=== PATIENT | male | born 1965 ===

== ENCOUNTER 2019-09-06 09:44 | Emergency (ER) | payer BC ==
--- OUTSIDE RECORDS SUMMARY | 2019-09-06 11:20 | XMS REPORT | Continuity of Care Document ---
:1965 External Reference #:[id number] Author Name Samir Reynolds M.D. Address [address] [facility] [address] [place] [address] Care Team Providers Name Role Phone Indio Stern DO - Family Care Team Information Rn Digestive Medicine Charles Koroma MD - Family Medicine Care Team Information Rn Digestive Problems Active Problems Provider Date Enthesopathy Onset: 07/27/2003 Arthralgia of the ankle and/or foot Onset: 07/27/2003 Shoulder joint pain Onset: 07/27/2003 Essential hypertension Stacy Brown M.D. Onset: 01/08/2017 Abdominal pain Sid Brooks MD,FACS Onset: 03/27/2017 Symptom of skin and integumentary tissue Sid Brooks MD,FACS Onset: 03/27 Bilateral inguinal hernia Sid Brooks MD,FACS Onset: 06/25/2017 Benign essential hypertension Stacy Brown M.D. Onset: 01/08/2017 Localized, primary osteoarthritis Christy Kaufman PA Onset: 12/01/2018 Blood chemistry abnormal Charles Koroma MD Onset: 04/21/2019 Benign prostatic hypertrophy without Samir Reynolds M.D. 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 Tablets office before proedure Dexamethasone take at 11 at 1tabs D44.12 Samir Reynolds, 08/31/2019 1mg Tablets night night M.D. before blood test to be done at 8 am next day Valsartan 1 tab by mouth 90tabs Charles Koroma MD 04/28/2019 320mg Tablets every day as directed Amlodipine Besylate 1 by mouth every 90tabs Charles Koroma MD 04/28/2019 5mg day Tablets Blood Pressure Cuff check bp every 1units I10 Stacy Brown, 01/08/2017 Misc daily until M.D. stable Aspir-81 1 by mouth every Unknown 81mg Tablets DR day Aleve 1 by mouth twice Unknown 220mg Capsules a day after meals as needed Bifidoph 2 at night Unknown Proactazyme 5 a day Unknown Immunizations CPT Code Status Date Vaccine Lot # [id number] Given 04/21/2019 Influenza Virus Vaccine, Quadrivalent, 36 Mos+, [id number] Given 08/22/2017 Influenza Virus Vaccine Quadrivalent Iiv4 [place] [id number] [id number] Given 01/08/2017 Tdap injection [id number] Vital Signs Date Vital Result Comment 08/31/2019 1:51pm BP Systolic 155 mmHg BP Diastolic 82 mmHg Body Temperature 98.2 F Heart Rate 102 /min Respiratory Rate 16 /min Height 71 inches 5'11" Weight 237.50 lb Pain Level 0 BMI (Body Mass Index) 33.1 kg/m2 BSA (Body Surface Area) 2.27 m2 [place] body weight in kilograms 78 kg O2 % BldC Oximetry 98 % 08/11/2019 3:37pm BP Systolic Sitting Right Arm 150 mmHg BP Diastolic Sitting Right Arm 101 mmHg BP Systolic Sitting Left Arm 147 mmHg BP Diastolic Sitting Left Arm 102 mmHg Body Temperature 98.6 F Heart Rate 85 /min Respiratory Rate 16 /min Height 71 inches 5'11" Weight 235.00 lb Pain Level 0 BMI (Body Mass Index) 32.8 kg/m2 BSA (Body Surface Area) 2.26 m2 [place] body weight in kilograms 78 kg O2 % BldC Oximetry 98 % Results Test Acquired Date Facility Test Result H/L Range Note Urine Dipstick 08/11/2019 [facility] Ua Color Yellow Yellow Ua Clarity Clear Clear Ua Leuko Negative Negative Ua Nitrite Negative Negative Ua Urobilinogen 0.2 0.2 - 1.0 E.U./dL Ua Protein Negative Negative Ua PH 6.5 6.5-7.5 Ua Blood 25 High Negative Ua Specific [place] 1.015 1.010-1.030 Ua Ketones Negative Negative Ua Bilirubin Negative Negative Ua Glucose Negative Negative Ua RFX Micro & Culture 08/11/2019 [facility] Urine Color Yellow Yellow 1 II [address] [place] [address] [phone] Urine Clarity Clear Clear Urine Glucose - Dipstick NEGATIVE mg/dL Negative Urine Bilirubin - Dipstick NEGATIVE Negative Urine Ketone NEGATIVE mg/dL Negative Urine Specific [place] 1.005 Low 1.010-1.030 Urine Blood TRACE Negative Urine PH 5.5 Low 6.5-7.5 Urine Protein - Dipstick NEGATIVE mg/dL Negative Urine Urobilinogen - Dipstick < 2.0 mg/dL < 2.0 Urine Nitrite - Dipstick NEGATIVE Negative Urine Leuk Esterase NEGATIVE Negative Urine WBC 0-2 wbc/hpf 0-5 Source: URINE, CLEAN CAT <SEE NOTE> 2 Basic Metabolic Panel 08/11/2019 [facility] Glucose 92 mg/dL Normal 74-106 [address] [place] [address] [phone] BUN 13 mg/dL Normal 7-18 Creatinine 1.3 mg/dL Normal 0.6-1.3 Glom Filtration Rate, Estimate >60 mL/min >60 If >60 mL/min >60 3 BUN/Creat 10.0 ratio Sodium 134 mmol/L Low 136-145 Potassium 4.0 mmol/L Normal 3.5-5.1 Chloride 101 mmol/L Normal 98-107 Carbon Dioxide 27 mmol/L Normal 21-32 Anion Gap 6 mEq/L Low 8-16 Calcium 8.8 mg/dL Normal 8.5-10.1 Ua RFX Micro & Culture 08/10/2019 [facility] [address] Urine Color Yellow Yellow 4 II [address] [place] [address] [phone] Urine Clarity Clear Clear Urine Glucose - Dipstick NEGATIVE mg/dL Negative Urine Bilirubin - Dipstick NEGATIVE Negative Urine Ketone NEGATIVE mg/dL Negative Urine Specific [place] 1.015 Normal 1.010-1.030 Urine Blood NEGATIVE Negative Urine PH 5.5 Low 6.5-7.5 Urine Protein - Dipstick 30 mg/dL Abnormal Negative Urine Urobilinogen - Dipstick < 2.0 mg/dL < 2.0 Urine Nitrite - Dipstick NEGATIVE Negative Urine Leuk Esterase NEGATIVE Negative Urine RBC 3-5 rbc/hpf 0-2 Urine WBC 0-2 wbc/hpf 0-5 Urine Hyaline Cast 0-2 #/lpf None Seen Urine Mucus SMALL None Seen Source: URINE, CLEAN CAT <SEE NOTE> 5 PSA (Free 08/10/2019 [facility] [address] Prostate-specific 1.4 ng/mL 0.0- 4.0 6 And Total) [address] [facility] antigen,[place] [address] [phone] PSA,Free 0.34 ng/mL N/A 7 %Free PSA 24.3 % . 8 Urine Culture 08/10/2019 [facility] Urine Culture NO GROWTH: [address] <[place] [address] NOTE> [phone] Urine Dipstick 08/10/2019 [facility] Ua Leuko - Negative Ua Nitrite - Negative Ua Urobilinogen .2 0.2 - 1.0 E.U./dL Ua Protein 1+ High Negative Ua PH 6 Low 6.5-7.5 Ua Blood trace Negative Ua Specific [place] 1.015 1.010-1.030 Ua Ketones - Negative Ua Bilirubin - Negative Ua Glucose - Negative Laboratory test 06/29/2019 [facility] [address] Uric Acid 7.2 mg/dL Normal 3.5-7.2 10 finding [address] [place] [address] [phone] Basic Metabolic 06/29/[address] Glucose 107 mg/dL High 74- 106 Panel [address] [place] [address] [phone] BUN 12 mg/dL Normal 7-18 Creatinine 1.2 mg/dL Normal 0.6-1.3 Glom Filtration Rate, Estimate >60 mL/min >60 If >60 mL/min >60 11 BUN/Creat 10.0 ratio Sodium 136 mmol/L Normal 136-145 Potassium 3.9 mmol/L Normal 3.5-5.1 Chloride 105 mmol/L Normal 98-107 Carbon Dioxide 28 mmol/L Normal 21-32 Anion Gap 3 mEq/L Low 8-16 Calcium 9.0 mg/dL Normal 8.5-10.1 Ua RFX Micro & 06/29/[address] [place] [address] [place] [address] [phone] Urine Clarity Clear Clear Urine Glucose - Dipstick NEGATIVE mg/dL Negative Urine Bilirubin - Dipstick NEGATIVE Negative Urine Ketone NEGATIVE mg/dL Negative Urine Specific [place] 1.013 Normal 1.010-1.030 Urine Blood TRACE Negative Urine PH 5.5 Low 6.5-7.5 Urine Protein - Dipstick TRACE mg/dL Negative Urine Urobilinogen - Dipstick < 2.0 mg/dL < 2.0 Urine Nitrite - Dipstick NEGATIVE Negative Urine Leuk Esterase NEGATIVE Negative Urine RBC 3-5 rbc/hpf 0-2 Urine Mucus SMALL None Seen Source: URINE, CLEAN CAT <SEE NOTE> 12 Comprehensive 04/21/[address] Glucose 99 mg/dL Normal 74-106 Metabolic Panel [address] [place] [address] [phone] BUN 15 mg/dL Normal 7-18 Creatinine 1.3 mg/dL Normal 0.6-1.3 Glom Filtration Rate, Estimate >60 mL/min >60 If >60 mL/min >60 13 BUN/Creat 11.5 ratio Sodium 133 mmol/L Low 136-145 Potassium 3.8 mmol/L Normal 3.5-5.1 Chloride 99 mmol/L Normal 98-107 Carbon Dioxide 28 mmol/L Normal 21-32 Anion Gap 6 mEq/L Low 8-16 Calcium 9.2 mg/dL Normal 8.5-10.1 Total Protein 7.6 g/dL Normal 6.4-8.2 Albumin 3.8 g/dL Normal 3.4-5.0 Globulin 3.8 g/dL Normal 1.9-4.3 Alb/Glob 1.0 ratio Bilirubin,Total 0.5 mg/dL Normal 0.2-1.0 Sgot/Ast 24 U/L Normal 15-37 SGPT/Alt 34 U/L Normal 12-78 Alkaline Phosphatase 68 U/L Normal 45-117 LDL Cholesterol Profile 04/21/[address] [facility] [address] Cholesterol 184 mg/dL <829 07 [address] [place] [address] [phone] Triglycerides 122 mg/dL <150 15 HDL Cholesterol 53 mg/dL >40 16 LDL-Cholesterol 107 mg/dL < 100 17 1 R31.21 2 URINE, CLEAN CATCH 3 Note: Persistent reduction for 3 months or more in an eGFR <60 mL/min/1.73 m2 defines CKD. Patients with eGFR values >/=60 mL/min/1.73 m2 may also have CKD if evidence of persistent proteinuria is present. The original MDRD equation for estimated GFR is not valid for patients less than 18 years of age. Additional information may be found at www.kdoqi.org. 4 R31.9 5 URINE, CLEAN CATCH 6 Iain ECLIA methodology. According to the [place] [employer], Serum PSA should decrease and remain at undetectable levels after radical prostatectomy. The AUA defines biochemical recurrence as an initial PSA value 0.2 ng/mL or greater followed by a subsequent confirmatory PSA value 0.2 ng/mL or greater. Values obtained with different assay methods or kits cannot be used interchangeably. Results cannot be interpreted as absolute evidence of the presence or absence of malignant disease. 7 Iain ECLIA methodology. 8 The table below lists the probability of prostate cancer for men with non-suspicious ANDRY results and total PSA between 4 and 10 ng/mL, by patient age (Catalona et al, TERENCE 1998, 279:1542). % Free PSA 50-64 yr 65-75 yr 0.00-10.00% 56% 55% 10.01-15.00% 24% 35% 15.01-20.00% 17% 23% 20.01-25.00% 10% 20% >25.00% 5% 9% Please note: Te et al did not make specific recommendations regarding the use of percent free PSA for any other population of men. Performed at: RN - [facility] [address] [id number] [employer]: Kayleen Barnes MD, Phone: [phone] NO GROWTH: FINAL REPORT 10 Z33.000 11 Note: Persistent reduction for 3 months or more in an eGFR <60 mL/min/1.73 m2 defines CKD. Patients with eGFR values >/=60 mL/min/1.73 m2 may also have CKD if evidence of persistent proteinuria is present. The original MDRD equation for estimated GFR is not valid for patients less than 18 years of age. Additional information may be found at www.kdoqi.org. 12 URINE, CLEAN CATCH 13 Note: Persistent reduction for 3 months or more in an eGFR <60 mL/min/1.73 m2 defines CKD. Patients with eGFR values >/=60 mL/min/1.73 m2 may also have CKD if evidence of persistent proteinuria is present. The original MDRD equation for estimated GFR is not valid for patients less than 18 years of age. Additional information may be found at www.kdoqi.org. 14 Reference Guidelines*: Desirable: ........... < 200 mg/dL Borderline High: ..... 200-239 mg/dL High: ................ >= 240 mg/dL * The National Cholesterol Education Program (NCEP) 15 Reference Guidelines*: Normal: ............. < 150 mg/dL Borderline High: .... 150-199 mg/dL High: ............... 200-499 mg/dL Very High: .......... > 500 mg/dL * Source: National Cholesterol Education Program (NCEP) 16 Reference Guidelines*: Low HDL: ..... < 40 mg/dL Normal: ..... 40-60 mg/dL Desirable: ... > 60 mg/dL *The National Cholesterol Education Program(NCEP) 17 Reference Guidelines*: Optimal:........... <100 mg/dL Near Optimal....... 100-129 mg/dL Borderline High.... 130-159 mg/dL High............... 160-189 mg/dL Very High.......... >=190 mg/dL * Source: National Cholesterol Education Program (NCEP) Procedures Date Code Description Status 08/31/2019 23423 Cystoscopy Completed 08/31/2019 91972 Measurement Post Voiding Residual Urine By Completed Ultrasound,Non-Imaging 08/31/2019 50765 complex uroflowmetry electronic Completed 08/11/2019 65049 Measurement Post Voiding Residual Urine By Completed Ultrasound,Non-Imaging 08/11/2019 83111 complex uroflowmetry electronic Completed 04/29/2019 50340 Stress Test Interpre And Report Only Completed 04/29/2019 94962 Stress Test Physician Super Only Completed 04/29/2019 91622 Myocardial Imaging Tomographic Multiple Study AT Rest Completed Or Stress 04/21/2019 29538 EKG-Tracing And Report Completed 01/04/2016 93159425 Colonoscopy Completed Medical Devices Description No Information Available Encounters Type Date Location Provider Dx Diagnosis Office Visit 08/31/2019 Urology Samir Reynolds, R31.21 Asymptomatic 2:00p M.D. 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 N40.0 Benign prostatic hyperplasia without lower urinry tract symp Office Visit 08/11/2019 3:45p Urology Ariel Corey R31.21 Asymptomatic [place] [place] microscopic hematuria Office Visit 08/10/2019 7:50a Family Medicine Charles Koroma MD R31.9 Hematuria, Gabriel FREITAS unspecified E79.0 Hyperuricemia w/o signs of inflam arthrit and tophaceous dis Office Visit 06/17/2019 8:30a Family Charles Lang, I10 Essential (primary) Gabriel FREITAS MD hypertension E79.0 Hyperuricemia w/o signs of inflam arthrit and tophaceous dis E87.1 Hypo-osmolality and hyponatremia 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 08/31/2019 D44.12 Neoplasm of uncertain behavior of Samir Reynolds M.D. left adrenal gland 08/31/2019 N40.0 Benign prostatic hyperplasia without Samir Reynolds M.D. 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 at [id number]/2020 7:50 am - Charles Koroma MD at [facility]12/16/2019 7:30 am - Charles Koroma MD at [facility] RD08/31/2019 - Samir Reynolds M.D.R31.21 Asymptomatic microscopic hematuriaComments:Patient completed a microscopic hematuria workup today. There was no lesion seen in the bladder. He did have enlarged prostate identified.D44.12 Neoplasm of uncertain behavior of left adrenal glandNew Medication:Dexamethasone 1 mg - take at 11 at night night before blood test to be done at 8 am next dayNew Labs:Cortisol,Am, Ordered : 08/31/19Metanephrines,Frac,Plasma Free, Ordered: 08/31/19Comments:CT scan of the abdomen showed evidence of a left adrenal mass. Discussed with the patient to workupfor that and I will be ordering a dexamethasone suppression test and plasma metanephrines. We did go over the proper way to do those blood tests. I will call the patient with the results.N40.0 Benign prostatic hyperplasia without lower urinary tract symptomsComments:Patient with evidence of BPH based on cystoscopy. His peak flow was around 18 cc/s. He has not wasnot residual. I will see him back in 1 year for a uroflow and PVR Functional Status Description No Information Available Mental Status Description No Information Available Referrals Refer to Reason for Referral Status Appt Date Samir Reynolds M.D. 54M HTN, ex smoker, hematuria Closed 08/11/2019 [address], [place] [address] [phone]
--- OUTSIDE RECORDS SUMMARY | 2019-09-06 11:20 | XMS REPORT | Continuity of Care Document ---
:1965 External Reference #:[id number] Author Name Ariel Corey PA Address [address] [facility], [address] [place] [address] Care Team Providers Name Role Phone Indio Stern DO - Family Care Team Information Live Source Operator [phone] Medicine Charles Koroma MD - Family Medicine Care Team Information Live Source Operator Problems Active Problems Provider Date Enthesopathy Onset: [...] chemistry abnormal Charles Koroma MD Onset: 04/21/2019 Social History Type Date Description Comments Sex [...] 2015, smoker cigarettes 2007 Smoking Status Reviewed: 08/10/19 Patient is a former quit tobacco 2015, smoker cigarettes 2007 Allergies, Adverse Reactions, Alerts Description No Known Drug Allergies Medications Active Medications SIG Qnty Indications Ordering Provider Date Valsartan 1 tab by mouth 90tabs Charles Koroma MD 04/28/2019 320mg Tablets every day as directed Amlodipine Besylate 1 by mouth every 90tabs Charles Koroma MD 04/28/2019 5mg day Tablets Blood Pressure Cuff check bp every 1units I10 Stacy Brown M.D. 01/08/2017 daily until Misc stable Aspir-81 1 by mouth every Unknown 81mg Tablets day DR Chen 1 by mouth twice Unknown 220mg Capsules a day after meals as needed Bifidoph 2 at night Unknown Proactazyme 5 a day Unknown Immunizations CPT Code Status Date Vaccine Lot # [id number] Given 04/21/2019 Influenza Virus Vaccine, Quadrivalent, 36 Mos+, [id number] Given 08/22/2017 Influenza Virus Vaccine Quadrivalent Iiv4 [id number] [id number] Given 01/08/2017 Tdap injection [id number] Vital Signs Date Vital Result Comment 08/11/2019 3:37pm BP Systolic Sitting Right Arm [...] kg/m2 BSA (Body Surface Area) 2.26 m2 [place] body weight in kilograms 78 kg O2 % BldC Oximetry 98 % 08/10/2019 7:55am BP Systolic Sitting Left Arm 124 mmHg BP Diastolic Sitting Left Arm 76 mmHg Body Temperature 98.1 F Heart Rate 92 /min Respiratory Rate 18 /min Height 71 inches 5'11" Weight 234.00 lb BMI (Body Mass Index) 32.6 kg/m2 BSA (Body Surface Area) 2.25 m2 [place] body weight in kilograms 78 kg O2 [...] Ua Blood 25 High Negative Ua Specific [place] 1.015 1.010-1.030 Ua Ketones Negative Negative Ua Bilirubin Negative Negative Ua Glucose Negative Negative Ua RFX Micro & Culture 08/11/2019 [facility] Urine Color Yellow Yellow 1 II [address] [place] [address] [phone] Urine Clarity Clear Clear Urine Glucose - Dipstick NEGATIVE mg/dL Negative Urine Bilirubin - Dipstick NEGATIVE Negative Urine Ketone NEGATIVE mg/dL Negative Urine Specific [place] 1.005 Low 1.010-1.030 Urine Blood TRACE Negative Urine PH 5.5 Low 6.5-7.5 Urine Protein - Dipstick NEGATIVE mg/dL Negative Urine Urobilinogen - Dipstick < 2.0 mg/dL < 2.0 Urine Nitrite - Dipstick NEGATIVE Negative Urine Leuk Esterase NEGATIVE Negative Urine WBC 0-2 wbc/hpf 0-5 Source: URINE, CLEAN CAT <SEE NOTE> 2 Basic Metabolic Panel 08/11/2019 [facility] Glucose 92 mg/dL Normal 74-106 [address] [place] [address] [phone] BUN 13 mg/dL Normal 7-18 Creatinine 1.3 mg/dL Normal 0.6-1.3 Glom Filtration Rate, Estimate >60 mL/min >60 If >60 mL/min >60 3 BUN/Creat 10.0 ratio Sodium 134 mmol/L Low 136-145 Potassium 4.0 mmol/L Normal 3.5-5.1 Chloride 101 mmol/L Normal 98-107 Carbon Dioxide 27 mmol/L Normal 21-32 Anion Gap 6 mEq/L Low 8-16 Calcium 8.8 mg/dL Normal 8.5-10.1 Ua RFX Micro & Culture 08/10/[address] [facility] [address] Urine Color Yellow Yellow 4 II [address] [place] [address] [phone] Urine Clarity Clear Clear Urine Glucose - Dipstick NEGATIVE mg/dL Negative Urine Bilirubin - Dipstick NEGATIVE Negative Urine Ketone NEGATIVE mg/dL Negative Urine Specific [place] 1.015 Normal 1.010-1.030 Urine Blood NEGATIVE Negative [...] CAT <SEE NOTE> 5 PSA (Free 08/10/[address] Prostate-specific 1.4 ng/mL 0.0- 4.0 6 And Total) [address] [facility] antigen,[place], [place] [id number] [phone] PSA,Free 0.34 ng/mL N/A 7 %Free PSA 24.3 % . 8 Urine Culture 08/10/2019 [facility] Urine Culture NO GROWTH: [address] FIN[address] <[place] [address] NOTE> [phone] Urine Dipstick 08/10/2019 [facility] Ua Leuko - Negative Ua Nitrite - Negative Ua Urobilinogen .2 0.2 - 1.0 E.U./dL Ua Protein 1+ High Negative Ua PH 6 Low 6.5-7.5 Ua Blood trace Negative Ua Specific [place] 1.015 1.010-1.030 Ua Ketones - Negative Ua Bilirubin - Negative Ua Glucose - Negative Laboratory test 06/29/[address] Uric Acid 7.2 mg/dL Normal 3.5-7.2 [address] [place] [id number] [phone] Basic Metabolic 06/29/[address] Glucose 107 mg/dL High 74- 106 Panel [address] [place], [place] [id number] [phone] BUN 12 mg/dL Normal 7-18 Creatinine 1.2 mg/dL Normal 0.6-1.3 Glom Filtration Rate, Estimate >60 mL/min >60 If >60 mL/min >60 11 BUN/Creat 10.0 ratio Sodium 136 mmol/L Normal 136-145 Potassium 3.9 mmol/L Normal 3.5-5.1 Chloride 105 mmol/L Normal 98-107 Carbon Dioxide 28 mmol/L Normal 21-32 Anion Gap 3 mEq/L Low 8-16 Calcium 9.0 mg/dL Normal 8.5-10.1 Ua RFX Micro & 06/29/[address] Urine Color Light-Yellow Yellow Culture II [address] [place] [address] [phone] Urine Clarity Clear Clear Urine Glucose - Dipstick NEGATIVE mg/dL Negative Urine Bilirubin - Dipstick NEGATIVE Negative Urine Ketone NEGATIVE mg/dL Negative Urine Specific [place] 1.013 Normal 1.010-1.030 Urine Blood TRACE Negative Urine PH 5.5 Low 6.5-7.5 Urine Protein - Dipstick TRACE mg/dL Negative Urine Urobilinogen - Dipstick < 2.0 mg/dL < 2.0 Urine Nitrite - Dipstick NEGATIVE Negative Urine Leuk Esterase NEGATIVE Negative Urine RBC 3-5 rbc/hpf 0-2 Urine Mucus SMALL None Seen Source: URINE, CLEAN CAT <SEE NOTE> 12 Comprehensive 04/21/[address] Glucose 99 mg/dL Normal 74-106 Metabolic Panel [address] [place] [address] [phone] BUN 15 mg/dL Normal 7-18 Creatinine 1.3 [...] U/L Normal 45-117 LDL Cholesterol Profile 04/21/[address] Cholesterol 184 mg/dL <025 04 [address] [place] [address] [phone] Triglycerides 122 mg/dL <150 15 HDL Cholesterol [...] 6 Iain ECLIA methodology. According to the [place] [employer], Serum PSA should decrease and [...] of men. Performed at: RN - [facility] [address] [id number] Fiscal Economist: Kayleen Barnes MD, Phone: [phone] NO GROWTH: FINAL REPORT 10 H51.768 11 Note: Persistent reduction for 3 months [...] Program (NCEP) Procedures Date Code Description Status 04/29/2019 20016 Stress Test Interpre And Report Only Completed 04/29/2019 76175 Stress Test Physician Super Only Completed 04/29/2019 11452 Myocardial Imaging Tomographic Multiple Study AT Rest Completed Or Stress 04/21/2019 39992 EKG-Tracing And Report Completed 01/04/2016 38437655 Colonoscopy Completed Medical Devices Description No Information Available Encounters Type Date Location Provider Dx Diagnosis Office Visit 08/11/2019 Urology Ariel Corey R31.21 Asymptomatic 3:45p [place] microscopic hematuria Office Visit 08/10/2019 Family Medicine Charles Koroma MD R31.9 Hematuria, 7:[address]a [address] unspecified E79.0 Hyperuricemia w/o signs of inflam arthrit and tophaceous dis Office Visit 06/17/2019 8:30a Family Medicine Charles Koroma, I10 Essential (primary) Gabriel FREITAS MD hypertension E79.0 Hyperuricemia w/o signs of inflam arthrit and tophaceous dis E87.1 Hypo-osmolality and hyponatremia Z79.899 Other terminal system operator (current) drug therapy Office Visit 04/21/2019 7:30a Family Medicine Charles Koroma, R07.9 Chest pain, Gabriel FREITAS MD unspecified E79.0 Hyperuricemia w/o signs of inflam arthrit and tophaceous dis I10 Essential (primary) hypertension E87.1 Hypo-osmolality and hyponatremia Z23 Encounter for immunization Z79.899 Other terminal system operator (current) drug therapy Assessments Date Code Description Provider 08/11/2019 R31.21 Asymptomatic microscopic hematuria Ariel Corey PA 08/10/2019 R31.9 Hematuria, unspecified Charles Koroma MD 08/10/2019 E79.0 Hyperuricemia without signs of Charles Koroma MD inflammatory arthritis and to 06/17/2019 I10 Essential (primary) hypertension Charles Koroma MD 06/17/2019 E79.0 Hyperuricemia without signs of Charles Koroma MD inflammatory arthritis and to 06/17/2019 E87.1 Hypo-osmolality and hyponatremia Charles Koroma MD 06/17/2019 Z79.899 Other prison (current) drug Charles Koroma MD therapy 04/29/2019 R07.9 Chest pain, unspecified Chester Man M.D., [facility] 04/21/2019 R07.9 Chest pain, unspecified Charles Koroma MD 04/21/2019 E79.0 Hyperuricemia without signs of Charles Koroma MD inflammatory arthritis and to 04/21/2019 I10 Essential (primary) hypertension Charles Koroma MD 04/21/2019 E87.1 Hypo-osmolality and hyponatremia Chalres Koroma MD 04/21/2019 Z23 Encounter for immunization Charles Koroma MD 04/21/2019 Z79.899 Other prison (current) drug Charles Koroma MD therapy Plan of Treatment Future Appointment(s):08/24/2019 9:00 am - Samir Reynolds M.D. at [facility]/2020 7:50 am - Charles Koroma MD at [facility]12/16/2019 7:30 am - Charles Koroma MD at [facility] 08/11/2019 - Ariel Corey, PAR31.21 Asymptomatic microscopic hematuriaComments:There is a positive microscopy with 3-5 RBCs per high-power field the primary care office. Today's urine sent for culture and sensitivity. Left cystoscopy performed after having a CT of the abdomen and pelvis with and without contrast. Review of the workup the patient agreed to proceed with same. Functional Status Description No Information Available Mental Status Description No Information Available Referrals Refer to Reason for Referral Status Appt Date Samir Reynolds M.D. 54M HTN, ex smoker, hematuria Scheduled 08/11/2019 [address] [place] [address] [phone]
--- OUTSIDE RECORDS SUMMARY | 2019-09-06 11:20 | XMS REPORT | Continuity of Care Document ---
:1965 External Reference #:[id number] Author Name Charles Koroma MD Address [address] [place] [address] Care Team Providers Name Role Phone Indio Stern DO - Family Care Team Information Snowboard Designer Medicine Charles Koroma MD - Family Medicine Care Team Information Snowboard Designer Problems Active Problems Provider Date Enthesopathy Onset: [...] former quit tobacco 2015, smoker cigarettes 2007 Recreational Drug Use Never Used Drugs Smoking Status Reviewed: 08/10/19 Patient is a [...] as needed Bifidoph 2 at night Unknown [place] 2 a day Unknown 500mg Capsules Proactazyme 5 a day Unknown Immunizations CPT Code Status Date Vaccine Lot # [id number] Given 04/21/2019 Influenza Virus Vaccine, Quadrivalent, 36 Mos+, [id number] Given 08/22/2017 Influenza Virus Vaccine Quadrivalent Iiv4 [place] [id number] [id number] Given 01/08/2017 Tdap injection [id number] Vital Signs Date Vital Result Comment 08/10/2019 7:55am BP Systolic Sitting Left Arm 124 mmHg BP Diastolic Sitting Left Arm 76 mmHg Body Temperature 98.1 F Heart Rate 92 /min Respiratory Rate 18 /min Height 71 inches 5'11" Weight 234.00 lb BMI (Body Mass Index) 32.6 kg/m2 BSA (Body Surface Area) 2.25 m2 [place] body weight in kilograms 78 kg O2 % BldC Oximetry 98 % 06/17/2019 8:33am BP Systolic 126 mmHg BP Diastolic 68 mmHg Body Temperature 97.4 F Heart Rate 86 /min Respiratory Rate 18 /min Height 71 inches 5'11" Weight 227.00 lb BMI (Body Mass Index) 31.7 kg/m2 BSA (Body Surface Area) 2.23 m2 [place] body weight in kilograms 78 kg O2 % BldC Oximetry 99 % Results Test Acquired Date Facility Test Result H/L Range Note Urine Dipstick 08/10/2019 [facility] Ua Leuko - Negative Ua Nitrite - Negative Ua Urobilinogen .2 0.2 - 1.0 E.U./dL Ua Protein 1+ High Negative Ua PH 6 Low 6.5-7.5 Ua Blood trace Negative Ua Specific [place] 1.015 1.010-1.030 Ua Ketones - Negative Ua Bilirubin - Negative Ua Glucose - Negative Laboratory test 06/29/[address] [facility] [address] Uric Acid 7.2 mg/dL Normal 3.5-7.2 1 finding [address] [place] [address] [phone] Basic Metabolic 06/29/[address] [facility] [address] Glucose 107 mg/dL High 74- [address] [place] [phone] BUN 12 mg/dL Normal 7-18 Creatinine 1.2 mg/dL Normal 0.6-1.3 Glom Filtration Rate, Estimate >60 mL/min >60 If >60 mL/min >60 2 BUN/Creat 10.0 ratio Sodium 136 mmol/L Normal 136-145 Potassium 3.9 mmol/L Normal 3.5-5.1 Chloride 105 mmol/L Normal 98-107 Carbon Dioxide 28 mmol/L Normal 21-32 Anion Gap 3 mEq/L Low 8-16 Calcium 9.0 mg/dL Normal 8.5-10.1 Ua RFX Micro & 06/29/[address] [facility] [address] Urine [place] [address] [place] [address] [phone] Urine Clarity Clear Clear Urine Glucose - Dipstick NEGATIVE mg/dL Negative Urine Bilirubin - Dipstick NEGATIVE Negative Urine Ketone NEGATIVE mg/dL Negative Urine Specific [place] 1.013 Normal 1.010-1.030 Urine Blood TRACE Negative Urine PH 5.5 Low 6.5-7.5 Urine Protein - Dipstick TRACE mg/dL Negative Urine Urobilinogen - Dipstick < 2.0 mg/dL < 2.0 Urine Nitrite - Dipstick NEGATIVE Negative Urine Leuk Esterase NEGATIVE Negative Urine RBC 3-5 rbc/hpf 0-2 Urine Mucus SMALL None Seen Source: URINE, CLEAN CAT <SEE NOTE> 3 Comprehensive 04/21/[address] [facility] [address] [facility] [address] Glucose 99 mg/dL Normal 74-106 Metabolic Panel [address] [place] [address] [phone] BUN 15 mg/dL Normal 7-18 Creatinine 1.3 mg/dL Normal 0.6-1.3 Glom Filtration Rate, Estimate >60 mL/min >60 If >60 mL/min >60 4 BUN/Creat 11.5 ratio Sodium 133 mmol/L Low [...] U/L Normal 45-117 LDL Cholesterol Profile 04/21/[address] [facility] [address] Cholesterol 184 mg/dL <200 5 [address] [place] [address] [phone] Triglycerides 122 mg/dL <150 6 HDL Cholesterol 53 mg/dL >40 7 LDL-Cholesterol 107 mg/dL < 100 8 1 Z79.899 2 Note: Persistent reduction for 3 months or more in an eGFR <60 mL/min/1.73 m2 defines CKD. Patients with eGFR values >/=60 mL/min/1.73 m2 may also have CKD if evidence of persistent proteinuria is present. The original MDRD equation for estimated GFR is not valid for patients less than 18 years of age. Additional information may be found at www.kdoqi.org. 3 URINE, CLEAN CATCH 4 Note: Persistent reduction for 3 months or more in an eGFR <60 mL/min/1.73 m2 defines CKD. Patients with eGFR values >/=60 mL/min/1.73 m2 may also have CKD if evidence of persistent proteinuria is present. The original MDRD equation for estimated GFR is not valid for patients less than 18 years of age. Additional information may be found at www.kdoqi.org. 5 Reference Guidelines*: Desirable: ........... < 200 mg/dL Borderline High: ..... 200-239 mg/dL High: ................ >= 240 mg/dL * The National Cholesterol Education Program (NCEP) 6 Reference Guidelines*: Normal: ............. < 150 mg/dL Borderline High: .... 150-199 mg/dL High: ............... 200-499 mg/dL Very High: .......... > 500 mg/dL * Source: National Cholesterol Education Program (NCEP) 7 Reference Guidelines*: Low HDL: ..... < 40 mg/dL Normal: ..... 40-60 mg/dL Desirable: ... > 60 mg/dL *The National Cholesterol Education Program(NCEP) 8 Reference Guidelines*: Optimal:........... <100 mg/dL Near Optimal....... 100-129 mg/dL Borderline High.... 130-159 mg/dL High............... 160-189 mg/dL Very High.......... >=190 mg/dL * Source: National Cholesterol Education Program (NCEP) Procedures Date Code Description Status 04/29/2019 22110 Stress Test Interpre And Report Only Completed 04/29/2019 91453 Stress Test Physician Super Only Completed 04/29/2019 04597 Myocardial Imaging Tomographic Multiple Study AT Rest Completed Or Stress 04/21/2019 18234 EKG-Tracing And Report Completed 01/04/2016 54432304 Colonoscopy Completed Medical Devices Description No Information Available Encounters Type Date Location Provider Dx Diagnosis Office Visit 08/10/2019 Family Medicine Charles Koroma MD R31.9 Hematuria, 7:50a Gabriel FREITAS unspecified E79.0 Hyperuricemia w/o signs of inflam arthrit and tophaceous dis Office Visit 06/17/2019 8:30a Family Charles Lang, I10 Essential (primary) Gabriel FREITAS MD hypertension E79.0 Hyperuricemia w/o signs of inflam arthrit and tophaceous dis E87.1 Hypo-osmolality and hyponatremia Z79.899 Other prison (current) drug therapy Office Visit 04/21/2019 7:30a Family [place] Koroma, Charles, R07.9 Chest pain, [facility] unspecified E79.0 Hyperuricemia w/o signs of inflam arthrit and tophaceous dis I10 Essential (primary) hypertension E87.1 Hypo-osmolality and hyponatremia Z23 Encounter for immunization Z79.899 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 Assessments Date Code Description Provider 08/10/2019 R31.9 Hematuria, unspecified Charles Koroma MD [...] R07.9 Chest pain, unspecified Chester Man M.D., [facility] 04/21/2019 R07.9 Chest pain, unspecified Charles Koroma MD 04/21/2019 E79.0 Hyperuricemia without signs of Charles Koroma MD inflammatory arthritis and to 04/21/2019 I10 Essential (primary) hypertension Charles Koroma MD 04/21/2019 E87.1 Hypo-osmolality and hyponatremia Charles Koroma MD 04/21/2019 Z23 Encounter for immunization Charles Koroma MD 04/21/2019 Z79.899 Other prison (current) drug Charles Koroma MD therapy Plan of Treatment Future Appointment(s):11/09/2019 7:50 am - Charles Koroma MD at [facility]12/16/2019 7:30 am - Charles Koroma MD at [facility]2019 - Charles Koroma, MDR31.9 Hematuria, unspecifiedNew Labs:Ua RFX Micro & Culture II, Ordered: 08/10/19Urine Culture, Ordered: 08/10/19PSA (Free And Total ), Ordered: 08/10/19Referral:Samir Reynolds M.D., [id number] Hyperuricemia without signs of inflammatory arthritis and to Functional Status Description No Information Available Mental Status Description No Information Available Referrals Refer to Dr Reason for Referral Status Appt Date Samir Reynolds M.D. 54M HTN, ex smoker, hematuria Created [address], [place] [address] [phone]
[2019-09-06 11:32] VITALS: BP 142/86
--- NOTE | 2019-09-06 12:11 | UC ---
Complaint Male HPI - HPI Summary HPI Summary: Pt presents with c/o sudden onset of urinary frequency, bladder pressure and dysuria that began yesterday. Pt had a cystoscopy [address] Reynolds - History of Current Complaint Chief Complaint: UCGU Stated Complaint: UTI SYMPTOMS Time Seen by Provider: 09/06/19 11:51 Hx Obtained From: Patient Onset/Duration: Sudden Onset, Lasting Days, Still Present Timing: Constant Severity Initially: Mild Severity Currently: Mild Pain Intensity: 0 Location: Penis Character: Burning, Constant Pressure Aggravating Factor(s): Voiding Alleviating Factor(s): Nothing - Allergies/Home Medications Allergies/Adverse Reactions: Allergies Allergy/AdvReac Type Severity Reaction Status Date / Time No Known Allergies Allergy Verified 09/06/19 11:25 Home Medications: Home Medications Amlodipine Besylate [Norvasc] 2 mg PO BEDTIME 09/06/19 [History Confirmed ] Aspirin [Adult Low Dose Aspirin EC] 81 mg PO DAILY 09/06/19 [History Confirmed 09/06/19] Naproxen Sodium [Aleve] 220 mg PO BID 09/06/19 [History Confirmed 09/06/19] Valsartan [Valsartan 320 MG] 320 mg PO DAILY 09/06/19 [History Confirmed ] PMH/Surg Hx/FS Hx/Imm Hx Previously Healthy: Yes Endocrine History: Dyslipidemia Cardiovascular History: Cardiac Disease, Hypertension - Surgical History Surgical History: Yes Surgery Procedure, Year, and Place: VASECTOMY-1989. VASECTOMY REVERSAL-1999. VASECTOMY-2000. ROTATOR CUFF SHOULDER 2005 [id number] - Family History Known Family History: Positive: Cardiac Disease - Social History Occupation: Employed Full-time Lives: With Family Alcohol Use: Daily Substance Use Type: None Smoking Status (MU): Current Every Day Smoker Have You Smoked in the Last Year: No - Immunization History Vaccination Up to Date: Yes Review of Systems All Other Systems Reviewed And Are Negative: Yes Constitutional: Positive: Negative Skin: Positive: Negative Eyes: Positive: Negative ENT: Positive: Negative Respiratory: Positive: Negative Cardiovascular: Positive: Negative Gastrointestinal: Positive: Negative Genitourinary: Positive: Dysuria, Hematuria, Frequency, Urgency Motor: Positive: Negative Neurovascular: Positive: Negative Musculoskeletal: Positive: Negative Neurological: Positive: Negative Psychological: Positive: Negative Is Patient Immunocompromised?: No Physical Exam Triage Information Reviewed: Yes Appearance: Well-Appearing Vital Signs: Initial Vital Signs Temp 99.7 F 09/06/19 11:26 Pulse 100 09/06/19 11:26 Resp 18 09/06/19 11:26 BP 142/86 09/06/19 11:26 Pulse Ox 98 09/06/19 11:26 Vital Signs Reviewed: Yes Eye Exam: Normal ENT Exam: Normal ENT: Positive: Hearing grossly normal Dental Exam: Normal Neck exam: Normal Respiratory Exam: Normal Respiratory: Positive: Lungs clear, Normal breath sounds Cardiovascular Exam: Normal Cardiovascular: Positive: RRR Abdominal Exam: Normal Abdomen Description: Positive: Nontender Musculoskeletal Exam: Normal Neurological Exam: Normal Psychological Exam: Normal Skin Exam: Normal Complaint Male Course/Dx - Differential Dx/Diagnosis Differential Diagnosis/HQI/PQRI: Prostatitis, Urinary Tract Infection Provider Diagnosis: UTI (urinary tract infection) Discharge ED - Sign-Out/Discharge Documenting (check all that apply): Patient Departure All imaging exams completed and their final reports reviewed: No Studies - Discharge Plan Condition: Stable Disposition: HOME Prescriptions: Cephalexin CAP* [Keflex 500 CAP*] 500 mg PO Q8H #21 cap Patient Education Materials: Urinary Tract Infection in Men (ED) Referrals: Samir Reynolds MD [Medical Doctor] - As Soon As Possible Ken Britt MD [Primary Care Provider] - If Needed - Billing Disposition and Condition Condition: STABLE Disposition: Home - Attestation Statements Provider Attestation: This patient was not seen by me. I was available for consult. Chart reviewed. TIM
== END 2019-09-06 12:22 | disposition home or self-care (01) ==
LOC: UCCORT 09:44
DX: N39.0 Urinary tract infection, site not specified (principal); I10 Essential (primary) hypertension; I51.9 Heart disease, unspecified; F17.210 Nicotine dependence, cigarettes, uncomplicated; Z79.899 Other long term (current) drug therapy; Z79.82 Long term (current) use of aspirin
CPT/HCPCS: 81003; 87077; 87086; 87186; 99202; G0463